=== PATIENT | female | born 1975 | race African-American/Black ===

== ENCOUNTER 2020-07-10 08:15 | Emergency (ER) | payer MEDICAID, OTHER ==
[~2020-07-10] VITALS: Ht 167.6 cm; Wt 60.0 kg
[2020-07-10] MEDS ORDERED: ACETAMINOPHEN 325MG TABLET PO ONE ×2 (09:15→15:45)
[2020-07-10] MEDS ORDERED: DIPHENHYDRAMINE 50MG/ML VIAL IV ONE (09:15)
[2020-07-10] MEDS ORDERED: METOCLOPRAMIDE HCL 10MG/2ML VIAL IV ONE (09:15)
[2020-07-10 09:49] LABS: BASOPHILS % 0.3 % (0.0-2.0); EOSINOPHILS % 0.1 % (0.0-5.0); HEMATOCRIT. 38.7 % (36.0-48.0); HEMOGLOBIN. 12.5 g/dL (12.0-16.0); MEAN CORPUSCULAR HEMOGLOBIN 24.2 pg (28.0-32.0); MEAN CORPUSCULAR VOLUME 74.9 fL (81.0-99.0); MEAN PLATELET VOLUME 8.3 fl (7.4-10.4); MONOCYTES % 3.4 % (2.0-8.0); NEUTROPHILS % 87.2 % (40.0-76.0); PLATELET 319 x1000/uL (130-400); RED BLOOD CELL COUNT 5.17 mill/uL (4.2-5.4); RED CELL DISTRIBUTION WIDTH 17.5 % (11.6-14.6)
[2020-07-10 09:54] LABS: CHLORIDE 102 mEq/L (98-107)
[2020-07-10 10:03] LABS: HCG SCREEN NEGATIVE
[2020-07-10] MEDS ORDERED: HYDROCODONE/ACETAMINOPHEN 5/325MG TABLET PO ONE (12:45)
[2020-07-10] MEDS ORDERED: HYDROCODONE/ACETAMINOPHEN 5/325MG TABLET PO NR (16:00)
[2020-07-10] MEDS ORDERED: FENTANYL CITRATE/PF 50MCG/ML 2ML VIAL IV ONE (16:45)
[2020-07-10 17:56] LABS: CLARITY URINE CLOUDY (CLEAR); COLOR URINE ORANGE (YELLOW); KETONES URINE NEGATIVE (NEGATIVE); LEUKOCYTE ESTERASE URINE 1+ (NEGATIVE); NITRITE URINE POSITIVE (NEGATIVE); OCCULT BLOOD URINE 3+ (NEGATIVE); PROTEIN URINE TRACE (NEGATIVE); SPECIFIC GRAVITY URINE 1.018 (1.005-1.030)
[2020-07-10] MEDS ORDERED: CEPHALEXIN 250MG CAPSULE PO SCH (18:15)
[2020-07-10] MEDS ORDERED: MORPHINE SULFATE 4 MG/ML CPJ (NOT FOR IM USE) IV ONE (21:45)
[2020-07-11] MEDS ORDERED: HYDROCODONE/ACETAMINOPHEN 5/325MG TABLET PO SCH (02:45)
[2020-07-11] MEDS ORDERED: HYDROCODONE/ACETAMINOPHEN 5/325MG TABLET PO ONE (05:30)
[2020-07-11 09:39] VITALS: BP 116/79
== END 2020-07-11 10:10 | disposition short-term general hospital (02) ==
LOC: ER 08:15
DX: M79.601 Pain in right arm (principal); R53.1 Weakness; M54.2 Cervicalgia; D64.9 Anemia, unspecified; F12.90 Cannabis use, unspecified, uncomplicated; I10 Essential (primary) hypertension
CPT/HCPCS: 36415; 70450; 71045; 72125; 80053; 81003; 83690; 84484; 84703; 85025; 93005; 96374; 96375; 99285; J1200; J2270; J2765; J3010

== ENCOUNTER 2021-04-29 08:56 | Emergency (ER) | payer MEDICAID, OTHER ==
[~2021-04-29] VITALS: Ht 162.6 cm; Wt 68.0 kg
[2021-04-29] MEDS ORDERED: KETOROLAC 30MG/ML VIAL IV STA (09:42)
[2021-04-29] MEDS ORDERED: MORPHINE SULFATE 4 MG/ML CPJ (NOT FOR IM USE) IV STA (09:42)
[2021-04-29] MEDS ORDERED: ONDANSETRON HCL 4MG/2ML INJ IV STA (09:42)
[2021-04-29] MEDS ORDERED: SODIUM CHLORIDE 0.9% 1,000 ML IV ONE (09:45)
[2021-04-29 10:30] LABS: BASOPHILS % 0.7 % (0.0-2.0); EOSINOPHILS % 0.6 % (0.0-5.0); HEMATOCRIT. 34.4 % (36.0-48.0); HEMOGLOBIN. 11.1 g/dL (12.0-16.0); LYMPHOCYTES % 25.8 % (20.0-50.0); MEAN CORPUSCULAR HEMOGLOBIN 24.4 pg (28.0-32.0); MEAN CORPUSCULAR VOLUME 75.3 fL (81.0-99.0); MEAN PLATELET VOLUME 7.6 fl (7.4-10.4); MONOCYTES % 4.6 % (2.0-8.0); NEUTROPHILS % 68.3 % (40.0-76.0); PLATELET 340 x1000/uL (130-400); RED BLOOD CELL COUNT 4.57 mill/uL (4.2-5.4); RED CELL DISTRIBUTION WIDTH 17.4 % (11.6-14.6)
[2021-04-29 10:32] LABS: CLARITY URINE CLOUDY (CLEAR); COLOR URINE YELLOW (YELLOW); KETONES URINE NEGATIVE (NEGATIVE); LEUKOCYTE ESTERASE URINE NEGATIVE (NEGATIVE); NITRITE URINE NEGATIVE (NEGATIVE); OCCULT BLOOD URINE 1+ (NEGATIVE); PROTEIN URINE NEGATIVE (NEGATIVE); SPECIFIC GRAVITY URINE 1.015 (1.005-1.030); UROBILINOGEN URINE 0.2 E.U./dL (0.2-1.0)
[2021-04-29 10:35] LABS: HCG SCREEN NEGATIVE
[2021-04-29 10:36] LABS: CHLORIDE 114 mEq/L (98-107)
[2021-04-29 10:39] LABS: PROTHROMBIN TIME 10.8 sec (9.6-11.0)
[2021-04-29 10:40] LABS: ETHANOL BLOOD 181 mg/dL
[2021-04-29 10:44] LABS: *AMPHETAMINES SCREEN URINE NEGATIVE (NEGATIVE); *BARBITURATES SCREEN URINE NEGATIVE (NEGATIVE); *BENZODIAZEPINES SCREEN URINE NEGATIVE (NEGATIVE); *COCAINE SCREEN URINE NEGATIVE (NEGATIVE); OPIATES URINE SCREEN NEGATIVE (NEGATIVE)
[2021-04-29 10:45] LABS: PHENCYCLIDINE URINE SCREEN NEGATIVE (NEGATIVE)
[2021-04-29 10:46] LABS: METHADONE URINE SCREEN NEGATIVE (NEGATIVE)
[2021-04-29 10:48] LABS: CANNABINOID URINE SCREEN PRESUMTIVE POSITIVE (NEGATIVE)
[2021-04-29] MEDS ORDERED: MORPHINE SULFATE 4 MG/ML CPJ (NOT FOR IM USE) IV ONE (13:00)
[2021-04-29] MEDS ORDERED: IOHEXOL-300 100 ML BOTTLE ONE (13:56)
[2021-04-29] MEDS ORDERED: METRONIDAZOLE 500 MG PREMIX 100 ML IV ONE (16:30)
[2021-04-29] MEDS ORDERED: LEVOFLOXACIN 500MG PREMIX 100 ML IV ONE (16:30)
[2021-04-29] MEDS ORDERED: ACETAMINOPHEN 325MG TABLET PO ONE (19:00)
[2021-04-29] MEDS ORDERED: ACETAMINOPHEN 160MG/5ML UDC PO ONE (21:00)
[2021-04-30 03:00] VITALS: BP 135/89
== END 2021-04-30 05:54 | disposition short-term general hospital (02) ==
LOC: ER 08:56
DX: R10.31 Right lower quadrant pain (principal); R19.7 Diarrhea, unspecified; F17.290 Nicotine dependence, other tobacco product, uncomplicated; F12.10 Cannabis abuse, uncomplicated; Z20.822 Contact with and (suspected) exposure to COVID-19
CPT/HCPCS: 36415; 74177; 76830; 76856; 80053; 80305; 80320; 81003; 81025; 82962; 83690; 84703; 85025; 85610; 87426; 96361; 96365; 96368; 96375; 96376; 99285; J1885; J1956; J2270; J2405; J3490; J7030; Q9967; Z7610; G0480

== ENCOUNTER 2023-06-10 16:14 | Emergency (ER) | payer MEDICAID, OTHER ==
[~2023-06-10] VITALS: Ht 162.6 cm; Wt 73.0 kg
[2023-06-10 17:01] VITALS: O2SAT 99
[2023-06-10] MEDS ORDERED: ONDANSETRON 4MG ODT PO ONE (17:45)
[2023-06-10] MEDS ORDERED: KETOROLAC 30MG/ML VIAL IM ONE (17:45)
[2023-06-10 18:01] LABS: BASOPHILS % 0.5 % (0.0-2.0); DIFFERENTIAL COMMENT 0; EOSINOPHILS % 0.9 % (0.0-5.0); HEMATOCRIT. 34.2 % (36.0-48.0); HEMOGLOBIN. 11.6 g/dL (12.0-16.0); LYMPHOCYTES % 36.6 % (20.0-50.0); MEAN CORPUSCULAR HEMOGLOBIN 26.9 pg (28.0-32.0); MEAN CORPUSCULAR HGB CONC 33.8 g/dL (31.0-37.0); MEAN CORPUSCULAR VOLUME 79.5 fL (81.0-99.0); MEAN PLATELET VOLUME 7.5 fl (7.4-10.4); PLATELET 366 x1000/uL (130-400); RED CELL DISTRIBUTION WIDTH 14.5 % (11.6-14.6); WHITE BLOOD COUNT 6.5 x1000/uL (4.5-11.0)
[2023-06-10 18:12] LABS: CHLORIDE 106 mEq/L (98-107); INDEX HEMOLYSI 2 (1-3); INDEX ICTERIC 1 (1-4); INDEX LIPEMIC 1 (1-3); POTASSIUM 3.2 mEq/L (3.5-5.1); SODIUM 138 mEq/L (136-145)
[2023-06-10 18:15] LABS: ALBUMIN 3.5 g/dL (3.4-5.0); CALCIUM 8.7 mg/dL (8.5-10.1); CARBON DIOXIDE 22 mEq/L (21-32); GLUCOSE 96 mg/dL (70-105); UREA NITROGEN BLOOD 12 mg/dL (7-21)
[2023-06-10 18:26] LABS: ALANINE AMINOTRANSFERASE 34 IU/L (13-61); ASPARTATE AMINOTRANSFERASE 30 IU/L (15-37); B-HCG QUANTITATIVE < 1 mIU/mL (<3); BILIRUBIN TOTAL 0.2 mg/dL (0.1-1.0); CREATININE 0.6 mg/dL (0.6-1.3); PROTEIN TOTAL 7.2 g/dL (6.0-8.3)
[2023-06-10] MEDS ORDERED: POTASSIUM CHLORIDE 20MEQ/PACKET PO NR (19:15)
[2023-06-10] MEDS ORDERED: KETOROLAC 30MG/ML VIAL IM NR (19:30)
[2023-06-10] MEDS ORDERED: ONDANSETRON 4MG ODT PO NR (19:30)
[2023-06-10 20:30] VITALS: TEMP 98.1
[2023-06-10] MEDS ORDERED: ACETAMINOPHEN 325MG TABLET PO ONE (20:30)
[2023-06-10 22:30] VITALS: BP 114/87; PULSE 72; RESP 19
[2023-06-10] MEDS ORDERED: OXYCODONE HCL/ACETAMINOPHEN 5/325MG TABLET PO ONE (22:30)
[2023-06-10] MEDS ORDERED: OXYC-100 MT (22:31)
== END 2023-06-10 22:50 | disposition home or self-care (01) ==
LOC: ER 16:14
DX: R10.2 Pelvic and perineal pain (principal); R11.2 Nausea with vomiting, unspecified; F12.10 Cannabis abuse, uncomplicated; Z98.890 Other specified postprocedural states
CPT/HCPCS: 99284; 76830; 76856; 80053; 81025; 84702; 85025; 86850; 86900; 86901; 36415; 96372; Q0162; J1885

== ENCOUNTER 2023-08-01 09:04 | Emergency (ER) | payer MEDICAID ==
[~2023-08-01] VITALS: Ht 162.6 cm; Wt 75.0 kg
[~2023-08-01 09:04] MED LIST: OXYC-100 MT
[2023-08-01 09:35] VITALS: BP 134/99; PULSE 90; RESP 16; O2SAT 100
[2023-08-01 10:02] LABS: CLARITY URINE CLEAR (CLEAR); COLOR URINE YELLOW (YELLOW); GLUCOSE URINE NEGATIVE (NEGATIVE); KETONES URINE NEGATIVE (NEGATIVE); LEUKOCYTE ESTERASE URINE NEGATIVE (NEGATIVE); NITRITE URINE NEGATIVE (NEGATIVE); OCCULT BLOOD URINE NEGATIVE (NEGATIVE); PH URINE 5.5 (4.5-8.0); PROTEIN URINE NEGATIVE (NEGATIVE); SPECIFIC GRAVITY URINE 1.017 (1.005-1.030); UROBILINOGEN URINE 0.2 E.U./dL (0.2-1.0)
[2023-08-01] MEDS ORDERED: MAGNESIUM/ALUMINUM HYDROXIDE/SIMETHICONE 30ML UDC PO ONE (10:15)
[2023-08-01 10:19] LABS: BASOPHILS % 0.7 % (0.0-2.0); EOSINOPHILS % 2.5 % (0.0-5.0); HEMOGLOBIN. 12.4 g/dL (12.0-16.0); LYMPHOCYTES % 40.5 % (20.0-50.0); MEAN CORPUSCULAR HEMOGLOBIN 27.1 pg (28.0-32.0); MEAN CORPUSCULAR HGB CONC 33.5 g/dL (31.0-37.0); MEAN PLATELET VOLUME 8.1 fl (7.4-10.4); MONOCYTES % 6.9 % (2.0-8.0); NEUTROPHILS % 49.4 % (40.0-76.0); PLATELET 282 x1000/uL (130-400); RED BLOOD CELL COUNT 4.57 mill/uL (4.2-5.4); RED CELL DISTRIBUTION WIDTH 14.8 % (11.6-14.6); WHITE BLOOD COUNT 4.3 x1000/uL (4.5-11.0)
[2023-08-01 10:34] LABS: HCG SCREEN NEGATIVE
[2023-08-01 10:37] LABS: ALANINE AMINOTRANSFERASE 82 IU/L (10-49); ALBUMIN 4.1 g/dL (3.2-4.8); ASPARTATE AMINOTRANSFERASE 62 IU/L (<34); BILIRUBIN TOTAL 0.3 mg/dL (0.1-1.0); CALCIUM 9.1 mg/dL (8.7-10.4); CARBON DIOXIDE 27 mEq/L (21-32); CHLORIDE 107 mEq/L (98-107); CREATININE 0.7 mg/dL (0.6-1.0); GLUCOSE 96 mg/dL (70-105); POTASSIUM 3.8 mEq/L (3.5-5.1); PROTEIN TOTAL 6.8 g/dL (6.0-8.3); SODIUM 140 mEq/L (136-145); UREA NITROGEN BLOOD 7 mg/dL (9-23)
[2023-08-01] MEDS ORDERED: PANTOPRAZOLE 40MG DR TABLET PO ONE (11:15)
[2023-08-01] MEDS ORDERED: MAGNESIUM/ALUMINUM HYDROXIDE/SIMETHICONE 30ML UDC PO NR (12:02)
[2023-08-01] MEDS ORDERED: ACETAMINOPHEN 325MG TABLET PO ONE (12:15)
[2023-08-01 12:28] VITALS: TEMP 99
[2023-08-01] MEDS ORDERED: SUCR1TAB30 MT (12:48)
== END 2023-08-01 13:55 | disposition home or self-care (01) ==
LOC: ER 09:04
DX: K76.0 Fatty (change of) liver, not elsewhere classified (principal); R10.816 Epigastric abdominal tenderness; R10.13 Epigastric pain; F12.90 Cannabis use, unspecified, uncomplicated; Z98.890 Other specified postprocedural states
CPT/HCPCS: 36415; 76705; 80053; 81003; 81025; 84703; 85025; 99284